=== PATIENT | male | born 1995 | race African-American/Black ===

== ENCOUNTER 2021-07-01 17:27 | Emergency (ER) | payer MEDICAID ==
[~2021-07-01] VITALS: Ht 182.9 cm; Wt 65.8 kg
--- NOTE | 2021-07-01 17:40 | NUR ---
Dr Ames at bedside. MSE in progress.
[2021-07-01] MEDS ORDERED: ONDANSETRON 4 MG/2 ML VIAL IV ONE (18:00)
[2021-07-01] MEDS ORDERED: IV NORMAL SALINE 1000 ML BAG IV ONE (18:00)
[2021-07-01] MEDS ORDERED: MAG HYDROX/AL HYDROX/SIMETH 30 ML LIQUID UDC PO ONE (18:00)
[2021-07-01] MEDS ORDERED: FAMOTIDINE. 20 MG/2 ML VIAL IV ONE ×2 (18:00→18:12)
[2021-07-01] MEDS ORDERED: MORPHINE SULFATE 4 MG/1 ML DISP.SYRIN IV ONE (18:00)
[2021-07-01] MEDS ORDERED: MORPHINE SULFATE 4 MG/1 ML DISP.SYRIN ONE (18:11)
[2021-07-01] MEDS ORDERED: ONDANSETRON 4 MG/2 ML VIAL ONE (18:11)
[2021-07-01] MEDS ORDERED: MAG HYDROX/AL HYDROX/SIMETH 30 ML LIQUID UDC ONE (18:11)
[2021-07-01 18:15] LABS: MEAN CORPUSCULAR HEMOGLOBIN 31.4 uug (23.8-33.4); PLATELET COUNT (AUTO) 217 K/uL (152-348)
[2021-07-01 18:19] LABS: CREATININE 0.8 mg/dL (0.6-1.3)
[2021-07-01 18:24] LABS: BILIRUBIN,DIRECT 0.2 mg/dL (0.0-0.2); BILIRUBIN,TOTAL 0.5 mg/dL (0.2-1.0); TOTAL PROTEIN, SERUM 8.5 g/dL (6.4-8.2)
[2021-07-01] MEDS ORDERED: FAMO-132 PO (19:19)
[2021-07-01] MEDS ORDERED: ONDA4TAB11 PO (19:19)
[2021-07-01 19:36] LABS: EOSINOPHILS % (MANUAL) 1 % (0-8); LYMPHOCYTES % (MANUAL) 33 % (20-40); MONOCYTES % (MANUAL) 14 % (2-10); NEUTROPHILS % (MANUAL) 52 % (42-75)
--- NOTE | 2021-07-01 20:09 | NUR ---
Patient discharged to home in stable condition. Written and verbal after care instructions given. Patient verbalizes understanding of instructions. Stressed follow up or return to ER for worsening s/s. Pt ambulated with steady gait. denies pain .no sob. AOx4. no chest pain. afebrile
[2021-07-01 20:53] VITALS: BP 121/72
== END 2021-07-01 20:53 | disposition home or self-care (01) ==
LOC: ER 17:27
DX: R10.13 Epigastric pain (principal); R11.10 Vomiting, unspecified; R63.0 Anorexia
CPT/HCPCS: 36415; 76705; 80048; 80076; 83690; 85007; 85025; 96374; 96375; 99284; J2270; J2405; J3490; 70030-TC; A4663; J7030